=== PATIENT | female | born 1985 | race Caucasian/White ===

== ENCOUNTER 2019-12-03 07:00 | Outpatient (CLI) | payer OTHER ==
[2019-12-03 15:55] LABS: MUDS CUTOFF CONCENTRATIONS CUTOFF CONC BELOW:
[2019-12-03 16:04] LABS: BILIRUBIN,URINE NEGATIVE (NEGATIVE); GLUCOSE, URINE (UA) NEGATIVE (NEGATIVE); KETONES,URINE (UA) NEGATIVE (NEGATIVE); LEUKOCYTE ESTERASE, URINE SMALL (NEGATIVE); NITRITE,URINE NEGATIVE (NEGATIVE); OCCULT BLOOD,URINE NEGATIVE (NEGATIVE); PH,URINE 7.5 PH (5.0-7.5); PROTEIN,URINE NEGATIVE (NEGATIVE); UROBILINOGEN,URINE 0.2 (NORMAL) E.U./dL (NORMAL)
[2019-12-03 16:17] LABS: BACTERIA,URINE Few /HPF (None Seen); CLARITY,URINE CLEAR (CLEAR); RBC,URINE None Seen /HPF (0-5); SQUAMOUS EPITHELIAL CELL,UR MOD Squamous (<= Few)
[2019-12-03 16:24] LABS: AMPHETAMINE SCREEN,URINE NEGATIVE (NEGATIVE); BENZODIAZEPINES SCREEN, URINE NEGATIVE (NEGATIVE); COCAINE SCREEN URINE NEGATIVE (NEGATIVE); METHADONE SCREEN, URINE NEGATIVE (NEGATIVE); METHAMPHETAMINES SCREEN, URINE NEGATIVE (NEGATIVE); OPIATE SCREEN, URINE NEGATIVE (NEGATIVE); OXYCODONE SCREEN, URINE NEGATIVE (NEGATIVE); PROPOXYPHENE SCREEN, URINE NEGATIVE (NEGATIVE); TRICYCLIC ANTIDEPRESSANT,URINE NEGATIVE (NEGATIVE)
== END 2020-02-02 23:59 | disposition home or self-care (01) ==
LOC: LAB.R 07:00
PROVIDERS: ATTEND Nurse Practitioner Obstetrics & Gynecology
DX: Z34.90 Encounter for supervision of normal pregnancy, unspecified, unspecified trimester (principal)
CPT/HCPCS: 80306; 81001; 87086

== ENCOUNTER 2019-12-17 15:18 | Outpatient (CLI) | payer OTHER ==
--- NOTE | 2019-12-17 17:15 | Ultrasound Report ---
PROCEDURE: OB First Trimester INDICATIONS: SUPERVISION OF NORMALL OUTSIDE/PRIOR DATING DATA: Last menstrual period (LMP): 10/28/2019. LMP-based estimated date of delivery (ISAMAR): 08/03/2020. First dating scan (date and location): 12/17/2019. Estimated date of delivery (ISAMAR) from first dating scan: 08/01/2020. TECHNIQUE: Real-time scanning was performed of the fetus and maternal pelvic organs, with image documentation. COMPARISON: None FINDINGS: There is a single living intrauterine gestation with heart rate 152 bpm. Embryo: [place]-rump length 1.2 cm correlates with a gestational age estimate of 7 weeks 3 days, +/- 5 days. Measurement variability in dating: +/- 4 weeks by LMP, +/- 7 days by mean sac diameter (use before 6 weeks gestation if crown-rump length not able to be measured), +/- 5 days by crown-rump length (6-12 weeks gestation). Maternal organs: Ovaries normal considering gestational status. Limited images through the kidneys demonstrate no hydronephrosis. IMPRESSION: 7 week 3 day gestational age, with delivery date projected to be centered on 08/01/2020 from this stud y. Follow-up anatomic survey at 20 weeks gestation is recommended. Reviewed by: Paul Velasquez MD on 12/17/2019 5:14 PM PST Approved by: Paul Velasquez MD on 12/17/2019 5:14 PM PST Station ID: [id number]
== END 2019-12-17 15:19 | disposition home or self-care (01) ==
LOC: DI 15:18
PROVIDERS: ATTEND Nurse Practitioner Obstetrics & Gynecology
DX: Z34.91 Encounter for supervision of normal pregnancy, unspecified, first trimester (principal)
CPT/HCPCS: 76801

== ENCOUNTER 2020-01-07 10:53 | Outpatient (CLI) | payer OTHER ==
[2020-01-07 11:51] LABS: BASOPHILS # (AUTO) 0.1 10^3/uL (0.0-0.1); BASOPHILS % (AUTO) 0.6 %; EOSINOPHILS # (AUTO) 0.4 10^3/uL (0.0-0.7); EOSINOPHILS % (AUTO) 3.4 %; HGB - HEMOGLOBIN 12.6 g/dL (12.0-16.0); LYMPHOCYTES # (AUTO) 1.5 10^3/uL (1.5-3.5); LYMPHOCYTES % (AUTO) 14.2 %; MEAN CORPUSCULAR HEMOGLOBIN 30.8 pg (27.0-31.0); MEAN CORPUSCULAR HGB CONC 33.7 g/dL (32.0-36.0); MEAN CORPUSCULAR VOLUME 91.4 fL (81.0-99.0); MEAN PLATELET VOLUME 10.2 fL (7.9-10.8); MONOCYTES # (AUTO) 0.7 10^3/uL (0.0-1.0); MONOCYTES % (AUTO) 6.7 %; NEUTROPHILS # (AUTO) 7.7 10^3/uL (1.5-6.6); NEUTROPHILS % (AUTO) 74.7 %; PLT - PLATELET COUNT 207 10^3/uL (130-450); RED BLOOD COUNT 4.09 10^6/uL (4.20-5.40); RED CELL DISTRIBUTION WIDTH 12.2 % (12.0-15.0); WHITE BLOOD COUNT 10.3 x10^3/uL (4.8-10.8)
[2020-01-08 11:52] LABS: HIV AG/AB 4TH GEN NON-REACTIVE (NON-REACTIVE)
[2020-01-08 12:38] LABS: HEPATITIS B SURFACE ANTIGEN NON-REACTIVE (NON-REACTIVE); HEPATITIS C ANTIBODY NON-REACTIVE (NON-REACTIVE)
== END 2020-01-07 10:54 | disposition home or self-care (01) ==
LOC: LAB 10:53
PROVIDERS: ATTEND Advanced Practice Midwife
DX: Z34.90 Encounter for supervision of normal pregnancy, unspecified, unspecified trimester (principal); Z36.89 Encounter for other specified antenatal screening
CPT/HCPCS: 36415; 81599; 85025; 86592; 86762; 86787; 86803; 86850; 86900; 86901; 87340; 87389

== ENCOUNTER 2020-02-13 10:13 | Outpatient (CLI) | payer OTHER | END 2020-02-13 10:14 | disposition home or self-care (01) | LOC: LAB 10:13 | PROVIDERS: ATTEND Advanced Practice Midwife | DX: O09.519 Supervision of elderly primigravida, unspecified trimester (principal) | CPT/HCPCS: 36415; 82105 ==

== ENCOUNTER 2020-03-08 08:16 | Outpatient (CLI) | payer OTHER | END 2020-03-08 08:17 | disposition home or self-care (01) | LOC: LAB 08:16 | PROVIDERS: ATTEND Nurse Practitioner Obstetrics & Gynecology | DX: Z36.0 Encounter for antenatal screening for chromosomal anomalies (principal) | CPT/HCPCS: 81599; 82105 ==

== ENCOUNTER 2020-03-17 15:18 | Outpatient (CLI) | payer BC, OTHER ==
--- NOTE | 2020-03-22 16:56 | Ultrasound Report ---
PROCEDURE: OB Detailed Eval INDICATIONS: ENC FOR SCREENING OUTSIDE/PRIOR DATING DATA: Last menstrual period (LMP): 10/28/2019. LMP-based estimated date of delivery (ISAMAR): 08/03/2020. First dating scan (date and location): 12/17/2019. Estimated date of delivery (ISAMAR) from first dating scan: 08/01/2020. Due date by provider is 08/03/2020 . TECHNIQUE: Real-time scanning was performed of the fetus, with image documentation and biometric measurements. COMPARISON: OB ultrasound 12/17/2019 FINDINGS: General: A single living intrauterine gestation is present. Presentation: Third Placenta: Placental position is posterior, without previa. Amniotic fluid index: 16.3 cm, within normal limits for gestational age. Largest pocket 4.5 cm. heart rate: 158 beats per minute. Maternal cervical canal: 3.6 cm long; normal length is 2.5 cm or more. biometrics: Biparietal diameter: 5.0 cm 21 weeks 1 day Head circumference: 18.7 cm 21 weeks 0 days Abdominal circumference: 15.9 cm 21 weeks 0 days Femur length: 3.4 cm 20 weeks 5 days Estimated gestational age from initial scan: 20 weeks 1 day Composite gestational age from present scan: 20 weeks 6 days Estimated weight and percentile: 385 g, 85th percentile Measurement variability in biometric dating: +/- 10 days from 12-20 weeks gestation, +/- 2 weeks from 20-30 weeks gestation, +/- 3 weeks at 30 weeks gestation or later. Anatomic survey: Neuro: Ventricles are normal at less than 10 mm. Cisterna magna is normal at 3-11 mm. Cerebellum i s normal in size and morphology. Nuchal skin fold: Normal at less than 6 mm between 14 and 20 weeks gestational age. Face: Nose and lips, facial profile are normal. Spine: No evidence for spina bifida. Heart: 4-chambered heart is present. Right ventricular outflow tract is suboptimally evaluated. Diaphragm: Diaphragm is intact. Stomach: Left-sided stomach is present. Kidneys: No hydronephrosis. Normal is less than 5 mm in 2nd trimester, less than 7 mm in 3rd trimester. Cord: 3 vessel cord has marginal placental cord insertion approximately 1.5 cm from the superior edg e. Bladder: Normal in size. Extremities: All 4 extremities are visualized. IMPRESSION: Single live intrauterine as above. Marginal placental cord insertion. Suboptimal visualization of the right ventricular outflow track. Recommend interval follow-up for add itional evaluation. Reviewed by: Swati Diaz MD on 03/22/2020 4:54 PM PST Approved by: Swati Diaz MD on 03/22/2020 4:54 PM PST Station ID: [id number]
== END 2020-03-17 15:19 | disposition home or self-care (01) ==
LOC: DI 15:18
PROVIDERS: ATTEND Advanced Practice Midwife
DX: Z34.92 Encounter for supervision of normal pregnancy, unspecified, second trimester (principal); Z36.0 Encounter for antenatal screening for chromosomal anomalies

== ENCOUNTER 2020-04-14 14:45 | Outpatient (CLI) | payer BC ==
--- NOTE | 2020-04-14 17:39 | Ultrasound Report ---
PROCEDURE: OB F/U or Repeat INDICATIONS: SUPERVISION OF NORMAL OUTSIDE/PRIOR DATING DATA: Last menstrual period (LMP): 10/28/2019. LMP-based estimated date of delivery (ISAMAR): 08/03/2020. First dating scan (date and location): 12/17/2019. Estimated date of delivery (ISAMAR) from first dating scan: 08/01/2020. TECHNIQUE: Real-time scanning was performed of the fetus, with image documentation. Endovaginal scanning: Not performed. COMPARISON: 03/17/2020. FINDINGS: General: A single living intrauterine gestation is present. Presentation: Cephalic. Placenta: Placental position is posterior, without previa. Cord insertion is marginal approximately 1.4 cm from the placental edge. Amniotic fluid index: 18.4 cm cm, 80th percentile for gestational age. Largest pocket 5 cm. heart rate: 141 beats per minute. Maternal cervical canal: 4.4 cm long; normal length is 2.5 cm or more. No funneling. Estimated gestational age from initial scan: 24 weeks 1 day. Composite gestational age from present scan: Not applicable. Measurement variability in biometric dating: +/- 10 days from 12-20 weeks gestation, +/- 2 weeks from 20-30 weeks gestation, +/- 3 weeks at 30 weeks gestation or more. Other: RVOT, LVOT, four-chamber heart views are normal. IMPRESSION: 1. [place] living intrauterine at 24 weeks 1 day based on prior ultrasound. 2. Marginal cord insertion on the placenta similar the prior exam. WILNER 18.4 cm. 3. The heart is now seen and normal in appearance. Reviewed by: Agapito Denson MD on 04/14/2020 5:38 PM PST Approved by: Agapito Denson MD on 04/14/2020 5:38 PM PST Station ID: [id number]
== END 2020-04-14 14:46 | disposition home or self-care (01) ==
LOC: DI 14:45
PROVIDERS: ATTEND Advanced Practice Midwife
DX: Z34.92 Encounter for supervision of normal pregnancy, unspecified, second trimester (principal)

== ENCOUNTER 2020-05-05 08:49 | Outpatient (CLI) | payer BC ==
[2020-05-05 10:06] LABS: HCT - HEMATOCRIT 31.9 % (37.0-47.0); MEAN CORPUSCULAR HEMOGLOBIN 32.4 pg (27.0-31.0); MEAN CORPUSCULAR HGB CONC 34.5 g/dL (32.0-36.0); MEAN CORPUSCULAR VOLUME 94.1 fL (81.0-99.0); MEAN PLATELET VOLUME 9.6 fL (7.9-10.8); RED BLOOD COUNT 3.39 10^6/uL (4.20-5.40); RED CELL DISTRIBUTION WIDTH 13.2 % (12.0-15.0); WHITE BLOOD COUNT 10.1 x10^3/uL (4.8-10.8)
== END 2020-05-05 08:50 | disposition home or self-care (01) ==
LOC: LAB 08:49
PROVIDERS: ATTEND Nurse Practitioner Obstetrics & Gynecology
DX: Z36.0 Encounter for antenatal screening for chromosomal anomalies (principal)
CPT/HCPCS: 36415; 82950; 85027

== ENCOUNTER 2020-06-16 09:14 | Outpatient (CLI) | payer OTHER ==
[2020-06-16 09:33] LABS: HCT - HEMATOCRIT 33.7 % (37.0-47.0); HGB - HEMOGLOBIN 11.7 g/dL (12.0-16.0); MEAN CORPUSCULAR HGB CONC 34.7 g/dL (32.0-36.0); MEAN CORPUSCULAR VOLUME 92.1 fL (81.0-99.0); MEAN PLATELET VOLUME 10.3 fL (7.9-10.8); RED BLOOD COUNT 3.66 10^6/uL (4.20-5.40); RED CELL DISTRIBUTION WIDTH 13.4 % (12.0-15.0); WHITE BLOOD COUNT 10.9 x10^3/uL (4.8-10.8)
== END 2020-06-16 09:15 | disposition home or self-care (01) ==
LOC: LAB 09:14
PROVIDERS: ATTEND Nurse Practitioner Obstetrics & Gynecology
DX: O99.019 Anemia complicating pregnancy, unspecified trimester (principal)
CPT/HCPCS: 36415; 85027

== ENCOUNTER 2020-06-29 11:10 | Outpatient (CLI) | payer OTHER ==
[2020-06-29 12:02] VITALS: BP 128/87
--- NOTE | 2020-06-29 12:46 | PROVIDER PROGRESS NOTE ---
- HPI Chief Complaint: Other Current : Current EDU 08/03/20 Gestation 35 Weeks and 0 Days 1 Para 0 Vital Signs Temperature 31.7 C L 06/29/20 11:20 Heart Rate 87 06/29/20 11:20 Respiratory Rate 18 06/29/20 11:20 Blood Pressure 147/82 H 06/29/20 11:20 O2 Saturation 97 06/29/20 11:20 Temperature 31.7 C L 06/29/20 11:20 Heart Rate 89 06/29/20 11:43 Respiratory Rate 18 06/29/20 11:43 Blood Pressure 128/87 H 06/29/20 11:43 O2 Saturation 97 06/29/20 11:20 - Procedures OB Procedure Performed: NST Diagnosis/Indication for NST: Other NST Procedure: NST Procedure Start Date 06/29/20 Start Time 11:17 Stop Time 11:44 Vibroacoustic Stimulation Used No Patient States Movement Yes - Plan Plan: Pt directed to present to [facility] from her routine office visit secondary to tachycardia noted on doppler at the bedside in the office. NST performed 06/29/2020 NST read 06/29/2020 NST reactive. FHR baseline 145, moderate variability, + accels, no decels No contractions appreciated via tocometry Pt released home with precautions. She verbalized understanding and agrees to above plan. She denies further questions or concerns at this time. FINAL ASSESSMENT: Tachycardia - resolved
== END 2020-06-29 11:50 | disposition home or self-care (01) ==
LOC: WFO 11:10 → FBP 11:11 → WFO 11:50
PROVIDERS: ATTEND Nurse Practitioner Obstetrics & Gynecology
DX: O36.8330 Maternal care for abnormalities of the fetal heart rate or rhythm, third trimester, not applicable or unspecified (principal); Z3A.35 35 weeks gestation of pregnancy
CPT/HCPCS: 59025; 99213

== ENCOUNTER 2020-07-09 08:00 | Outpatient (CLI) | payer OTHER | END 2020-07-09 23:59 | disposition home or self-care (01) | LOC: LAB.WC 08:00 | PROVIDERS: ATTEND Nurse Practitioner Obstetrics & Gynecology | DX: Z36.85 Encounter for antenatal screening for Streptococcus B (principal) | CPT/HCPCS: 87797 ==

== ENCOUNTER 2020-08-11 04:50 | Inpatient (IN) | payer OTHER ==
[2020-08-11] MEDS ORDERED: OXYTOCIN 10 UNIT/ML VIAL ONE (05:13)
[2020-08-11] MEDS ORDERED: OXYTOCIN/SODIUM CHLORIDE 500 ML IV ONE (05:13)
[2020-08-11] MEDS ORDERED: miSOPROStoL 200 MCG TABLET ONE (05:13)
[2020-08-11] MEDS ORDERED: TRANEXAMIC ACID IN NACL 1,000 MG/100 ML BAG IV PRN (05:14)
[2020-08-11] MEDS ORDERED: OXYTOCIN 10 UNIT/ML VIAL IM PRN (05:14)
[2020-08-11] MEDS ORDERED: SODIUM CHLORIDE FLUSH 0.9% 10 ML SYRINGE IVP PRN (05:14)
[2020-08-11] MEDS ORDERED: miSOPROStoL 200 MCG TABLET BC PRN (05:14)
[2020-08-11] MEDS ORDERED: LIDOCAINE-MPF 1% 30 ML VIAL ID PRN (05:14)
[2020-08-11] MEDS ORDERED: CARBOPROST TROMETHAMINE 250 MCG/ML AMP IM PRN (05:14)
[2020-08-11] MEDS ORDERED: METHYLERGONOVINE 0.2 MG/ML VIAL IM PRN (05:14)
[2020-08-11] MEDS ORDERED: OXYTOCIN/SODIUM CHLORIDE 500 ML IV PRN (05:14)
[2020-08-11] MEDS ORDERED: METHYLERGONOVINE 0.2 MG/ML VIAL ONE (05:14)
[2020-08-11] MEDS ORDERED: CARBOPROST TROMETHAMINE 250 MCG/ML AMP IM ONE (05:14)
[2020-08-11 05:24] LABS: RUPTURE OF MEMBRANES PLUS POSITIVE (NEGATIVE)
[2020-08-11 05:35] LABS: BASOPHILS # (AUTO) 0.1 10^3/uL (0.0-0.1); BASOPHILS % (AUTO) 0.4 %; EOSINOPHILS # (AUTO) 0.1 10^3/uL (0.0-0.7); EOSINOPHILS % (AUTO) 0.5 %; HCT - HEMATOCRIT 37.4 % (37.0-47.0); HGB - HEMOGLOBIN 13.1 g/dL (12.0-16.0); LYMPHOCYTES # (AUTO) 1.5 10^3/uL (1.5-3.5); LYMPHOCYTES % (AUTO) 11.9 %; MEAN CORPUSCULAR VOLUME 91.2 fL (81.0-99.0); MEAN PLATELET VOLUME 10.6 fL (7.9-10.8); MONOCYTES # (AUTO) 0.7 10^3/uL (0.0-1.0); MONOCYTES % (AUTO) 5.7 %; NEUTROPHILS # (AUTO) 10.3 10^3/uL (1.5-6.6); NEUTROPHILS % (AUTO) 80.7 %; PLT - PLATELET COUNT 206 10^3/uL (130-450); RED CELL DISTRIBUTION WIDTH 13.2 % (12.0-15.0); WHITE BLOOD COUNT 12.8 x10^3/uL (4.8-10.8)
[2020-08-11] MEDS ORDERED: LACTATED RINGERS 1,000 ML IV SCH (06:00)
[2020-08-11] MEDS ORDERED: HYDROCORTISONE 1% CREAM 28 GM TUBE PR PRN (08:32)
[2020-08-11] MEDS ORDERED: WITCH HAZEL/GLYCERIN 1 PAD TOP PRN (08:32)
--- NOTE | 2020-08-11 08:35 | HISTORY & PHYSICAL EXAMINATION ---
Admit History - Visit Reason Visit Reason: Contractions - : 1 Parity: 0 Premature: 0 Ectopic: 0 : 0 Risk/History: positive: None Complications This : positive: None Smoking Status: Never smoker - Mother's Labs Mother's Blood Type: positive: O Mother's RH: positive: Positive GBS: positive: Group B Step Negative Rubella Status: positive: Immune - Other Maternal History Other Maternal History: -35yo at 41.1wks gestation who presents to Labor and Delivery with reports of contractions since 229, which woke her up -Reports movement -Denies ctx/VB/LOF - care with [facility] which has been adequate - Complications *Mild anemia *Elderly primigravida -Dating Criteria * Initial US: at 7.1wks c/w LMP for ISAMAR 08/04/2019: -OB Hx *G1:current -Medications * vitamin-daily *Fe supplementation- 325mg daily -Allergies *Amoxicillin (critical) -Medical History *Anxiety -Surgical History *[place] Teeth extraction -Family History *MGM- arthritis *Father- HTN Mother- [place] <65yo -Social History *Non contributory - Labs, Immunizations, and Findings Initial US: at 7.1wks c/w LMP for ISAMAR 08/04/2019: O pos/Rubella immune VZV immune Gentic testing: [place]- neg; AFP - neg FAS: Posterior placenta. WILNER wnl. EFW 85%. 3vc. Suboptimal views of outflow tracts, f/u FAS 04/14/2020 -WNL Glucola 100 Flu: 12/03/2019 TDAP 06/02/2020 GBS at 36.2 weeks -Neg HSV: denies self and partner Breast pump Rx 05/19/2020 MOD: . Anxiety about noted- books recommended; Desires "wait and see" approach to pain management; FOB: Cheo. It's a BOY! Jorge pp contraception: condoms PAP: 01/07/2020- nilm, hpv neg, GC/CT neg -SVE per RN : complete/plus one -Vertex by digital exam -EFW by hillary's approx. 8.5# - Physical Exam: Normocephalic, atraumatic Heart RRR w/o murmur Lungs clear and equal bilaterally Abdomen gravid, soft, nontender Edema- none Psych- wnl -FHTs per flowsheet -Assessment *Restate STATUS *Smith Score *- requires cervical ripening * Heart Tones- Category I -Plan *Admit to OBS(until active labor, SROM, AROM, epidural, or pitocin) *Cervical ripening with Misoprostol *Monitoring- Continuous *Comfort measures available- position changes, whirlpool tub, fentanyl, and epidural per maternal preference *Diet/Activity- per maternal preference *Anticipate Meds/Allgy - Allergies Allergies/Adverse Reactions: Allergies Allergy/AdvReac Type Severity Reaction Status Date / Time amoxicillin Allergy Anaphylaxis Verified 08/11/20 05:43 Physical - Abdominal Exam Contraction Frequency (min/apart): 1-3min Contraction Intensity: positive: Strong Uterine Resting Tone: positive: Soft - Monitoring Heart Rate Baseline: 140 Strip Review: positive: Category I - Presentation Presentation: positive: Vertex - Vaginal Exam Dilation (in cm): 10 Plan for Labor - Plan For Labor I expect patient to be DC'd or transferred within 96 hours.: Yes
--- NOTE | 2020-08-11 08:35 | DELIVERY NOTE ---
<Alejandra Granger - Last Filed: 08/11/20 08:37> Delivery Note - Delivery Comments (Free Text/Narrative) Delivery Comments (Free Text/Narrative): ADDENDUM: I was called in for consultation for complication perineal laceration repair by PENG Hawkins. Patient was examined and found to have partial third degree laceration. She was administered 25 cc of 1% lidocaine in divided doses through the course of the repair. A rectal exam was performed and the anal sphincter was noted to be lacerated to about 2/3 depth. Interrupted sutures using 2-0 Vicryl were used to reinforce the sphincter in the posterior, inferior, superior, and anterior positions. Rectal exam was performed and the bulk of the sphincter muscle was adequately developed and no sutures were palpated in the rectum. Interrupted suture again using 2-0 Vicryl was used to reapproximate the musculature overlying the rectovaginal septum. Rectal exam was again performed, which showed absence of suture in the rectal vault and indicated satisfactory bulk over the rectovaginal septum. A crown stitch using 3-0 Vicryl was used to repair the floor of the vaginal vault and the perineum to the edge of the anal verge, performed in the usual sterile fashion in layers. Final rectal exam was performed and again showed absence of suture in the rectal vault. Good hemostasis was noted. Please refer to the delivery note above submitted by PENG Hawkins, for details regarding preceding delivery and EBL. Mine Granger MD 08/11/20 08:30 <vEon Wesley - Last Filed: 08/11/20 14:20> Delivery Note - Labor Labor: positive: Spontaneous - Delivery Method Infant Delivery Method: positive: Spontaneous vaginal delivery - Presentation Presentation: positive: Vertex, SHERLY - right occiput anterior (right hand compound) - Nuchal Cord Nuchal Cord: positive: None - Amniotic Fluid Description Amniotic Fluid Description: positive: Clear - Episiotomy Type Episiotomy Type: positive: None - Laceration Laceration: positive: 3rd degree - : positive: Placed in direct skin contact with mother, Stimulated, Blank et used sex: positive: Male - Cord Cord: positive: 3 vessels - Placenta Placenta: positive: Intact, Spontaneous - Estimated Blood Loss Estimated Blood Loss (in cc): 300 - Delivery Comments (Free Text/Narrative) Delivery Comments (Free Text/Narrative): Note: Labor: This 35 year old, , @41.1wks gestation by 7.1 week Ultrasound, confirmed by LMP, presented @ 0505 in active labor. Cervix was complete, plus one, and vertex. FHR pattern demonstrated a moderate baseline in a Category I pattern. Normal labor course. SROM occurred @ 0455 and amount and color of fluid were noted to be moderate and clear. CNM to bedside by 0520 and pushing began. Forebag ruptured for clear at 0558. : Normal of a 4055gm male infant, named Jorge, on 08/11/20 @ 0701. Nuchal not present, however baby did present in SHERLY with a right hand compound presentation. The was placed on maternal abdomen, stimulated, dried and placed skin to skin. Apgars 8 at one minute and 9 at five minutes. The umbilical cord was allowed to stop pulsating at which time it was doubly clamped by CNM and cut by Di. Pitocin administered via IV for hemostasis. Fundal massage and gentle cord traction applied for active third stage management. Cord blood was obtained. Placenta delivered spontaneously and intact at 0713. Three vessel cord. EBL 300mL. Fourth Stage: Uterine fundus firm and without excessive bleeding. The perineum, vagina, and cervix were inspected and found to be have sustained a partial third degree laceration. MD backup called to bedside for assistance with repair. Please see note. Following repair: Tissues well approximated. initiated. Family bonding well. Both mother and baby are in stable condition.
[2020-08-11] MEDS ORDERED: SODIUM CHLORIDE FLUSH 0.9% 10 ML SYRINGE IVP SCH (09:00)
[2020-08-11] MEDS: DOCUSATE SODIUM 100 MG CAPSULE PO SCH ×2 (09:13→20:49)
[2020-08-11] MEDS: ACETAMINOPHEN 500 MG TABLET PO SCH ×2 (09:13→17:26)
[2020-08-11] MEDS: IBUPROFEN 600 MG TABLET PO SCH ×3 (09:13→22:17)
[2020-08-12] MEDS: ACETAMINOPHEN 500 MG TABLET PO SCH ×2 (01:30→09:36)
[2020-08-12] MEDS: IBUPROFEN 600 MG TABLET PO SCH ×2 (04:18→10:28)
--- NOTE | 2020-08-12 07:51 | PROVIDER PROGRESS NOTE ---
Subjective - Prog Note Date Prog Note Date: 08/12/20 Prog Note Time: 07:00 - Subjective Pt reports feeling: Improved Subjective: S: Di is resting in bed. Baby is in bassinet and FOB is supportive at bedside. She reports has not been too much of a struggle. She feels her pain is well managed with oral medication and has not stooled yet, but is aware to take her time. O Lochia rubra fundus firm A: 35yo s/p SVE on 08/11/2020 Normal recovery P: Continue routine care Evaluate for discharge home today Objective - Vital Signs/Intake & Output Vital Signs: Vital Signs x48h Temp Pulse Resp BP Pulse Ox 08/12/20 04:14 36.7 C 75 18 131/76 H 97 Intake & Output: Intake & Output 08/09/20 08/10/20 08/11/20 08/12/20 23:59 23:59 23:59 23:59 Intake Total 1229.75 500 Output Total 650 Balance 579.75 500 - Lab Results Fish Bones: 08/11/20 05:20
[2020-08-12 09:10] VITALS: BP 120/69
[2020-08-12] MEDS: DOCUSATE SODIUM 100 MG CAPSULE PO SCH (09:36)
--- NOTE | 2020-08-12 10:45 | DISCHARGE SUMMARY ---
Discharge Summary Admit Date: 08/11/20 Discharge Date: 08/12/20 Condition at Discharge: Good Discharge Disposition: 01 Home, Self Care - HPI History of Present Illness: Admit Date 08/11/2020 Discharge Date 08/12/2020 Diagnosis on Admission: 1. A 35yo at 31.1 week intrauterine 2. Anemia of - mild 3. Elderly primagravida Diagnosis on Discharge 1. A 35yo s/p spontaneous vaginal delivery on 08/11/2020 2. Normal recovery Brief History: She is a patient at [facility] who presented to labor and delivery on 08/11/2020 @41.1wks gestation by 7.1 week Ultrasound, confirmed by LMP, presented @ 0505 in active labor. Cervix was complete, plus one, and vertex. FHR pattern demonstrated a moderate baseline in a Category I pattern. Normal labor course. SROM occurred @ 0455 and amount and color of fluid were noted to be moderate and clear. CNM to bedside by 0520 and pushing began. Forebag ruptured for clear at 0558. Normal of a 4055gm male , named Jorge, on 08/11/20 @ 0701. Apgars were 8 and 9- and 1 and 5 minutes respectively. EBL 300mL. She sustained partial third degree perineal laceration which was repaired by . She has been doing well in her course. She is ambulating and tolerating a regular diet. She is urinating without difficulty and her lochia is normal. Her pain is well controlled with oral medications. She will be discha rged home today on day #1 without need for. She intends to follow up with Midwifery at [facility] in 1, and 6 weeks for routine visit. She has been given precautions to call if she has any worsening fevers, chills, abdominal pain, increased bleeding or foul smelling vaginal lochia. - ALLERGIES Allergies/Adverse Reactions: Allergies Allergy/AdvReac Type Severity Reaction Status Date / Time amoxicillin Allergy Anaphylaxis Verified 08/11/20 05:43 - LABS Result Diagrams: 08/11/20 05:20
--- NOTE | 2020-08-12 10:46 | Discharge Plan ---
Discharge Plan Problem Reviewed?: Yes Disposition: Home, Self Care Condition: Good Diet: Regular No Smoking: If you smoke, Please STOP! Call for help. Follow-up with: Evon Wesley ARNP [Provider Admit Priv/Credential] -
== END 2020-08-12 11:50 | disposition home or self-care (01) | DRG 768 ==
LOC: WFO 04:50 → FBP 04:51 → WFO 05:04 → FBP 05:14
PROVIDERS: ADMIT Advanced Practice Midwife; ATTEND Advanced Practice Midwife
PROC: 0DQR0ZZ Repair Anal Sphincter, Open Approach (ICD-10-PCS; principal; 2020-08-11)
PROC: 10E0XZZ Delivery of Products of Conception, External Approach (ICD-10-PCS; 2020-08-11)
DX: O70.20 Third degree perineal laceration during delivery, unspecified (principal); Z37.0 Single live birth; O32.6XX0 Maternal care for compound presentation, not applicable or unspecified; O99.02 Anemia complicating childbirth; Z3A.41 41 weeks gestation of pregnancy
CPT/HCPCS: 36415; 84112; 85025; 86850; 86900; 86901; 99214; A9270; J2210

== ENCOUNTER 2022-03-15 11:39 | Outpatient (CLI) | payer OTHER ==
[2022-03-15 14:15] LABS: BASOPHILS # (AUTO) 0.1 10^3/uL (0.0-0.1); BASOPHILS % (AUTO) 0.5 %; EOSINOPHILS # (AUTO) 0.4 10^3/uL (0.0-0.7); EOSINOPHILS % (AUTO) 3.6 %; HGB - HEMOGLOBIN 12.3 g/dL (12.0-16.0); LYMPHOCYTES # (AUTO) 1.7 10^3/uL (1.5-3.5); LYMPHOCYTES % (AUTO) 16.8 %; MEAN CORPUSCULAR HEMOGLOBIN 30.1 pg (27.0-31.0); MEAN CORPUSCULAR HGB CONC 33.2 g/dL (32.0-36.0); MEAN CORPUSCULAR VOLUME 90.7 fL (81.0-99.0); MONOCYTES # (AUTO) 0.6 10^3/uL (0.0-1.0); MONOCYTES % (AUTO) 5.7 %; NEUTROPHILS # (AUTO) 7.4 10^3/uL (1.5-6.6); NEUTROPHILS % (AUTO) 73.2 %; PLT - PLATELET COUNT 203 10^3/uL (130-450); RED BLOOD COUNT 4.08 10^6/uL (4.20-5.40); RED CELL DISTRIBUTION WIDTH 12.9 % (12.0-15.0); WHITE BLOOD COUNT 10.1 x10^3/uL (4.8-10.8)
[2022-03-15 21:12] LABS: ESTIMATED AVERAGE GLUCOSE 97 mg/dL (70-100)
[2022-03-16 04:09] LABS: HBsAG SCREEN Negative (Negative)
[2022-03-16 07:10] LABS: RPR Non Reactive (Non Reactive)
[2022-03-16 08:10] LABS: VARICELLA-ZOSTER AB IGG 748 index (Immune >165)
[2022-03-16 09:10] LABS: HCV AB <0.1 s/co ratio (0.0-0.9); HIV SCREEN 4TH GENERATION Non Reactive (Non Reactive)
== END 2022-03-15 11:40 | disposition home or self-care (01) ==
LOC: LAB.S 11:39
PROVIDERS: ATTEND Nurse Practitioner Obstetrics & Gynecology
DX: O99.210 Obesity complicating pregnancy, unspecified trimester (principal); Z13.79 Encounter for other screening for genetic and chromosomal anomalies
CPT/HCPCS: 36415; 83036; 85025; 86592; 86762; 86787; 86803; 86850; 86900; 86901; 87340; 87389

== ENCOUNTER 2022-05-22 15:17 | Outpatient (CLI) | payer OTHER ==
--- NOTE | 2022-05-22 17:45 | Ultrasound Report ---
PROCEDURE: OB Detailed Eval INDICATIONS: SUPERVISION OF OUTSIDE/PRIOR DATING DATA: Last menstrual period (LMP): 12/31/2021. LMP-based estimated date of delivery (ISAMAR): 10/07/2022. First dating scan (date and location): To 723. Estimated date of delivery (ISAMAR) from first dating scan: 10/05/2022. The below data below was generated using the ultrasound ISAMAR of 10/05/2022 TECHNIQUE: Real-time scanning was performed of the fetus, with image documentation and biometric measurements. COMPARISON: None FINDINGS: General: A single living intrauterine gestation is present. Presentation: Vertex Placenta: Placental position is posterior, without previa. Amniotic fluid index: 17 cm, within normal limits for gestational age. heart rate: 132 beats per minute. Maternal cervical canal: 4.2 cm long; normal length is 2.5 cm or more. biometrics: Biparietal diameter: 4.9 cm 20 weeks 5 days Head circumference: 18.5 cm 20 weeks 6 days Abdominal circumference: 16.1 cm 21 weeks 1 day Femur length: 3.5 cm 21 weeks 1 day Estimated gestational age from initial scan: 20 weeks 4 days Composite gestational age from present scan: 20 weeks 4 days Estimated weight and percentile: 402 g, 76th percentile Measurement variability in biometric dating: +/- 10 days from 12-20 weeks gestation, +/- 2 weeks from 20-30 weeks gestation, +/- 3 weeks at 30 weeks gestation or later. Anatomic survey: Neuro: Ventricles are normal at less than 10 mm. Cisterna magna is normal at 3-11 mm. Cerebellum i s normal in size and morphology. Nuchal skin fold: Normal at less than 6 mm between 14 and 20 weeks gestational age. Face: Nose and lips, facial profile are not well seen. Spine: No evidence for spina bifida. Heart: 4-chambered heart and ventricular outflow tracts are suboptimally evaluated. Diaphragm: Diaphragm is intact. Stomach: Left-sided stomach is present. Kidneys: No hydronephrosis. Normal is less than 5 mm in 2nd trimester, less than 7 mm in 3rd trimester. Cord: 3 vessel cord has orthotopic insertion. Bladder: Normal in size. Extremities: All 4 extremities are visualized. IMPRESSION: Single live intrauterine with ultrasound gestational age of 20 weeks 4 days. 4 chambered heart/outflow tracts and profile are not well seen. Recommend follow-up imaging for furth er evaluation. Reviewed by: Swati Diaz MD on 05/22/2022 5:43 PM PDT Approved by: Swait Diaz MD on 05/22/2022 5:43 PM PDT Station ID: [id number]
== END 2022-05-22 15:18 | disposition home or self-care (01) ==
LOC: DI 15:17
PROVIDERS: ATTEND Nurse Practitioner Obstetrics & Gynecology
DX: Z34.02 Encounter for supervision of normal first pregnancy, second trimester (principal); Z36.89 Encounter for other specified antenatal screening

== ENCOUNTER 2022-06-08 16:29 | Outpatient (CLI) | payer OTHER ==
--- NOTE | 2022-06-09 14:41 | Ultrasound Report ---
PROCEDURE: OB F/U or Repeat INDICATIONS: SUPERVISION OF NORMAL , FAS F/U OUTSIDE/PRIOR DATING DATA: Last menstrual period (LMP): 12/31/2021. LMP-based estimated date of delivery (ISAMAR): 10/07/2022. First dating scan (date and location): To 723. Estimated date of delivery (ISAMAR) from first dating scan: 10/05/2022. The below data below was generated using the ultrasound ISAMAR of 10/05/2022. TECHNIQUE: Real-time scanning was performed of the fetus, with image documentation and biometric measurements. COMPARISON: OB ultrasound, 05/22/2022. FINDINGS: General: A single living intrauterine gestation is present. Presentation: Breech Placenta: Placental position is posterior, without previa. Amniotic fluid index: 13.3 cm; largest pocket measuring 3.9 cm. heart rate: 137 beats per minute. Maternal cervical canal: 4.5 cm long; normal length is 2.5 cm or more. Other: facial profile is visualized and appeara normal. Normal four-chamber heart and ventricul ar outflow tracts. IMPRESSION: 1. Single living intrauterine gestation redemonstrated. 2. Normal facial follow-up, four-chamber heart and ventricular outflow tracts. 3. Normal WILNER. Reviewed by: Sonia Rosario MD on 06/09/2022 2:39 PM PDT Approved by: Sonia Rosario MD on 06/09/2022 2:39 PM PDT Station ID: [id number]
== END 2022-06-08 16:30 | disposition home or self-care (01) ==
LOC: DI 16:29
PROVIDERS: ATTEND Nurse Practitioner Obstetrics & Gynecology
DX: Z34.00 Encounter for supervision of normal first pregnancy, unspecified trimester (principal); Z36.89 Encounter for other specified antenatal screening

== ENCOUNTER 2022-07-05 09:52 | Outpatient (CLI) | payer OTHER ==
[2022-07-05 14:32] LABS: HCT - HEMATOCRIT 33.4 % (37.0-47.0); HGB - HEMOGLOBIN 10.8 g/dL (12.0-16.0); MEAN CORPUSCULAR HEMOGLOBIN 30.9 pg (27.0-31.0); MEAN CORPUSCULAR HGB CONC 32.3 g/dL (32.0-36.0); MEAN CORPUSCULAR VOLUME 95.4 fL (81.0-99.0); MEAN PLATELET VOLUME 11.4 fL (7.9-10.8); RED BLOOD COUNT 3.5 10^6/uL (4.20-5.40); RED CELL DISTRIBUTION WIDTH 13.3 % (12.0-15.0); WHITE BLOOD COUNT 9.9 x10^3/uL (4.8-10.8)
== END 2022-07-05 09:53 | disposition home or self-care (01) ==
LOC: LAB.S 09:52
PROVIDERS: ATTEND Nurse Practitioner Obstetrics & Gynecology
DX: Z36.9 Encounter for antenatal screening, unspecified (principal)
CPT/HCPCS: 36415; 82950; 85025; 85027

== ENCOUNTER 2022-09-13 10:30 | Outpatient (CLI) | payer OTHER ==
[2022-09-13 15:03] LABS: BASOPHILS % (AUTO) 0.4 %; EOSINOPHILS # (AUTO) 0.2 10^3/uL (0.0-0.7); EOSINOPHILS % (AUTO) 1.9 %; HGB - HEMOGLOBIN 12.3 g/dL (12.0-16.0); LYMPHOCYTES # (AUTO) 1.4 10^3/uL (1.5-3.5); MEAN CORPUSCULAR HEMOGLOBIN 31.2 pg (27.0-31.0); MEAN CORPUSCULAR HGB CONC 33.2 g/dL (32.0-36.0); MEAN CORPUSCULAR VOLUME 93.9 fL (81.0-99.0); MEAN PLATELET VOLUME 11.4 fL (7.9-10.8); MONOCYTES # (AUTO) 0.8 10^3/uL (0.0-1.0); NEUTROPHILS # (AUTO) 7.4 10^3/uL (1.5-6.6); NEUTROPHILS % (AUTO) 75.1 %; PLT - PLATELET COUNT 191 10^3/uL (130-450); RED BLOOD COUNT 3.94 10^6/uL (4.20-5.40); RED CELL DISTRIBUTION WIDTH 13.9 % (12.0-15.0); WHITE BLOOD COUNT 9.9 x10^3/uL (4.8-10.8)
[2022-09-13 15:16] LABS: CREATININE,URINE 35.6 mg/dL; PROTEIN/CREATININE RATIO,URINE 0.1 (<=0.2)
[2022-09-13 16:13] LABS: ALBUMIN 3.5 g/dL (3.2-5.5); ALBUMIN/GLOBULIN RATIO 1.3 (1.0-2.2); BILIRUBIN,TOTAL 0.4 mg/dL (0.2-1.0); CALCIUM 9.5 mg/dL (8.5-10.3); CREATININE 0.6 mg/dL (0.6-1.3); POTASSIUM 4.1 mmol/L (3.5-4.5); TOTAL PROTEIN 6.2 g/dL (6.4-8.9)
== END 2022-09-13 10:31 | disposition home or self-care (01) ==
LOC: LAB.S 10:30
PROVIDERS: ATTEND Nurse Practitioner Obstetrics & Gynecology
DX: R03.0 Elevated blood-pressure reading, without diagnosis of hypertension (principal)
CPT/HCPCS: 36415; 80053; 82570; 84156; 85025

== ENCOUNTER 2022-10-05 13:21 | Inpatient (IN) | payer OTHER ==
[2022-10-05] MEDS ORDERED: miSOPROStoL 200 MCG TABLET PR PRN (13:56)
[2022-10-05] MEDS ORDERED: fentaNYL 100 MCG/2 ML VIAL IVP PRN (13:56)
[2022-10-05] MEDS ORDERED: LABETALOL 20 MG/4 ML SYRINGE IVP PRN ×3 (13:56)
[2022-10-05] MEDS ORDERED: METHYLERGONOVINE 0.2 MG/ML VIAL IM PRN (13:56)
[2022-10-05] MEDS ORDERED: hydrALAZINE INJ 20 MG/ML VIAL IVP PRN ×2 (13:56)
[2022-10-05] MEDS ORDERED: OXYTOCIN/SODIUM CHLORIDE 500 ML IV PRN (13:56)
[2022-10-05] MEDS ORDERED: SODIUM CHLORIDE FLUSH 0.9% 10 ML SYRINGE IVP PRN (13:56)
[2022-10-05] MEDS ORDERED: lidocaine 1% 20 ML MDV ID PRN (13:56)
[2022-10-05] MEDS ORDERED: LACTATED RINGERS 1,000 ML IV PRN (13:56)
[2022-10-05] MEDS ORDERED: NIFEdipine 10 MG CAPSULE PO PRN (13:56)
[2022-10-05] MEDS ORDERED: OXYTOCIN 10 UNIT/ML VIAL IM PRN (13:56)
[2022-10-05] MEDS ORDERED: TERBUTALINE 1 MG/ML VIAL SUBQ PRN (13:56)
[2022-10-05] MEDS ORDERED: miSOPROStoL 200 MCG TABLET BC PRN (13:56)
[2022-10-05] MEDS ORDERED: CARBOPROST TROMETHAMINE 250 MCG/ML AMP IM PRN (13:56)
[2022-10-05] MEDS ORDERED: TRANEXAMIC ACID IN NACL 1,000 MG/100 ML BAG IV PRN (13:56)
[2022-10-05] MEDS ORDERED: OXYTOCIN/SODIUM CHLORIDE 500 ML IV ONE (14:02)
--- OUTSIDE RECORDS SUMMARY | 2022-10-05 14:20 | EXTERNAL MEDICAL SUMMARY RPT | Continuity of Care Document ---
Author Name Unknown Address [address] [place] [address] Phone Organization [place] Address [address] [place] [address] Phone Care Team Providers Care Press Tool Maker Name Role Phone Unavailable Unavailable Unavailable Results/Labs test date facility value unit notes
[2022-10-05] MEDS ORDERED: WITCH HAZEL/GLYCERIN 1 PAD TOP PRN (15:36)
[2022-10-05] MEDS ORDERED: HYDROCORTISONE 1% CREAM 28 GM TUBE PR PRN (15:36)
--- NOTE | 2022-10-05 15:41 | HISTORY & PHYSICAL EXAMINATION ---
Admit History - Visit Reason Visit Reason: Contractions - : 2 Parity: 1 Premature: 0 Ectopic: 0 : 0 Care: positive: [facility] Risk/History: positive: None Complications This : positive: None Smoking Status: Never smoker - Mother's Labs Mother's Blood Type: positive: O Mother's RH: positive: Positive GBS: positive: Group B Step Negative Rubella Status: positive: Immune - HPI Diagnosis/Indication for NST: Other Current EDU 10/07/22 Gestation 39 Weeks and 5 Days 2 Vital Signs Temperature 36.7 C 10/05/22 13:34 Heart Rate 110 H 10/05/22 13:34 Respiratory Rate 16 10/05/22 13:34 Blood Pressure 129/98 H 10/05/22 13:34 Temperature 36.8 C 10/05/22 14:01 Heart Rate 91 10/05/22 14:01 Respiratory Rate 18 10/05/22 14:01 Blood Pressure 139/88 H 10/05/22 14:01 O2 Saturation If not protocol: Oxygen Flow, liters/minute - NST Procedure NST Procedure Start Time 11:17 Stop Time 11:44 - Results and Plan Plan: NST reactive. FHR baseline 150s, moderate variability, + accels, no decels Contractions palpate strong every 2-3 minutes with soft resting tone Meds/Allgy - Allergies Allergies/Adverse Reactions: Allergies Allergy/AdvReac Type Severity Reaction Status Date / Time amoxicillin Allergy Anaphylaxis Verified 08/11/20 05:43 Review of Systems - Constitutional Constitutional: denies: Fatigue, Fever, Chills, Malaise - Eyes Eyes: denies: Blurred vision, Spots in vision, Dipolpia - Cardiovascular Cariovascular: denies: Irregular heart rate, Palpitations, Chest pain, Edema - Integumentary Integumentary: denies: Rash, Pruritis - Neurological Neurological: denies: Headache - Psychiatric Psychiatric: denies: Depression, Anxiety - Hematologic/Lymphatic Hematologic/Lymphatic: denies: Anemia Physical - Abdominal Exam Vital Signs: Temp Pulse Resp BP Pulse Ox O2 Flow Rate 36.8 C 91 18 139/88 H 10/05/22 14:01 10/05/22 14:01 10/05/22 14:01 10/05/22 14:01 Contraction Frequency (min/apart): 2-3 Contraction Intensity: positive: Strong Uterine Resting Tone: positive: Soft - Monitoring Heart Rate Baseline: 150 Strip Review: positive: Category I - Presentation Presentation: positive: Vertex - Vaginal Exam Membranes: positive: Membranes intact Dilation (in cm): 8 Effacement (%): 100 Station: positive: 0 Cervical Position: positive: Midposition - Speculum Exam Speculum Exam Performed: positive: No Plan for Labor - Plan For Labor I expect patient to be DC'd or transferred within 96 hours.: Yes Plan for Labor: HPI: Di is a 37yo @ 39.5wks gestation by LMP c/w 10.5wk U/S who presents to [facility] with c/o contractions. Upon arrival her cervix is noted to be 8/100/0 and vertex with intact membranes. She is found to contract every 2-3 minutes with soft resting tone. FHR baseline 150s, moderate variability, + accels, no decels. She reports light pink vaginal discharge after starting mild, infrequent contractions this morning at approximately 0730. They increased in frequency and intensity since that time. She denies leakage of fluid and she reports +FM. She has been a patient of [facility] for the duration of her . She is advanced maternal age and her genetic screening was negative. She was noted to have moderate anemia at 28wks gestation and received an IV oral iron infusion x 1 and has been taking a daily oral iron supplement since that time. She has a history of gestational hypertension in with her first baby and has been taking a once daily 81mg ASA for prevention since 12wks gestation. She was noted to have elevated blood pressure at 36wks and her PIH labs at that time were WNL. Since then her blood pressure has remained WNL both in the office and with her at home blood pressures. Her has otherwise remained uncomplicated. She will be admitted to [facility] for expectant management. She is supported by her Cheo today. LMP: Initial U/S @ 10.5wks c/w LMP dating Serial exams - agree clinical support tech History: Term NSVB x 1. SAB x 0. Last pap 11/2021 WNL. Denies history of gonorrhea, chlamydia, genital herpes, oral herpes or any other STI. Sexual partner does NOT have HSV (oral or genital). Medical Hx: no significant Surgical Hx: none Social Hx: Monogamous with male partner Cheo. Stopped drinking alcohol due to . Denies current use of tobacco, marijuana or other recreational drugs. Reports that she is safe in current relationship. Family Hx: Denies family history of congenital anomalies, Cystic Fibrosis or chromosomal abnormalities. FOB has a family history of twins. Allergies: Amoxicillin Medications: PNV, 81mg ASA once daily, FeSO4 bid course: O positive, antibody negative Rubella immune; varicella immune HIV non-reactive; RPR non-reactive Hep B neg, Hep C neg Initial U/S @ 10.5wks gestation c/w LMP dating Genetic screening - negative FAS WNL with the exception of incomplete visualization of cardiac outflow tracts. Posterior placenta, no previa. Size c/w dating (EFW 76%tile). 3VC. Completion FAS WNL. Glucola 95 COVID-19 vaccine - x 2 with booster x 1 Tdap - administered in the 3rd trimester GBS negative Physical exam: Normocephalic, atraumatic Heart RRR w/o M/G/R Lungs CTAB Abdomen gravid, soft, nontender EFW 3700g FHR baseline 150s, moderate variability, + accels, no decels Contractions palpate strong every 2-3 minutes with soft resting tone SVE 8/100/0 and vertex with intact membranes Bilateral LE's trace edema. Mood is good. Assessment: 37yo @ 39.5wks gestation by LMP c/w 10.5wk U/S Active labor FHR Category I GBS negative Advanced maternal age Plan: Admit to [facility] for expectant management. Continuous monitoring. Nitrous oxide PRN. Jacuzzi PRN. Epidural per maternal request. Anticipate .
--- NOTE | 2022-10-05 16:01 | DELIVERY NOTE ---
Delivery Note - Labor Labor: positive: Spontaneous - Delivery Method Delivery Method: positive: Spontaneous vaginal delivery - Presentation Presentation: positive: Vertex, SHERLY - right occiput anterior - Nuchal Cord Nuchal Cord: positive: None - Amniotic Fluid Description Amniotic Fluid Description: positive: Clear - Episiotomy Type Episiotomy Type: positive: None - Laceration Laceration: positive: 1st degree, Perineal - Suture Suture Type: positive: Vicryl Suture Size: positive: 2-0 - Delivery Outcome Delivery Outcome: positive: Livebirth - [place]: positive: Placed in direct skin contact with mother, Bulb syringe, Stimulated, Warmed, [place] used, Warmer used sex: positive: Female - Cord Cord: positive: 3 vessels - Placenta Placenta: positive: Intact, Spontaneous - Estimated Blood Loss Estimated Blood Loss (in cc): 250 - Post Delivery Events Post Delivery Events: positive: No post delivery events - Delivery Comments (Free Text/Narrative) Delivery Comments (Free Text/Narrative): Labor: This 37yo @ 39.5wks gestation by LMP c/w 10.5wk U/S presented on 10/05/2022 in active labor. Cervix was 8/100/0 and vertex with intact membranes. FHR pattern demonstrated Category I pattern throughout labor. Normal labor course. SROM occurred at 1432 and was noted to be a moderate amount of clear fluid. Pt progressed to c/c/+1 with onset of active pushing at 1437. : Normal SVB of viable female on 10/05/2022 @ 1443. No nuchal cord. The was placed on maternal abdomen, stimulated, dried, and placed skin to skin. Apgars were 8 and 9 at 1 and 5 minutes respectively. moved to infant warmer for closer assessment secondary to poor color at 1 minute of life. (see pediatric note for detailed report). Pitocin administered via IV for hemostasis. The umbilical cord was allowed to stop pulsating at which time it was doubly clamped by CNM and cut by FOB. Cord blood was obtained. 3VC. Fundal massage and gentle cord traction applied for active management of the third stage. Placenta delivered spontaneously and intact at 1446. EBL 250mL. Fourth stage: Uterine fundus firm and there is no excessive bleeding. The perineum, vagina, and cervix were inspected and found to have a 1st degree perineal laceration which was repaired using a 2-[address]-1 needle in standard fashion and under sterile conditions. Vaginal examination following repair was performed. Tissues well approximated. Family bonding well. Both mother and baby were left in stable condition.
[2022-10-05] MEDS: ACETAMINOPHEN 500 MG TABLET PO SCH (17:20)
[2022-10-05] MEDS: IBUPROFEN 800 MG TABLET PO SCH ×2 (17:20→23:18)
[2022-10-05 19:15] VITALS: O2SAT 100
[2022-10-05] MEDS: DOCUSATE SODIUM 100 MG CAPSULE PO SCH (21:41)
[2022-10-06] MEDS: ACETAMINOPHEN 500 MG TABLET PO SCH ×3 (01:17→16:44)
[2022-10-06] MEDS: IBUPROFEN 800 MG TABLET PO SCH ×2 (05:28→12:41)
--- NOTE | 2022-10-06 08:33 | Discharge Plan ---
Discharge Plan Problem Reviewed?: Yes Disposition: Home, Self Care Condition: Good Diet: Regular Activity Restrictions: No Restrictions Shower Restrictions: No Driving Restrictions: No Weight Bearing: Full Weight Instruction Topics: Vaginal After No Smoking: If you smoke, Please STOP! Call for help. Follow-up with: Juana Esposito CNM, ARNP [Provider Admit Priv/Credential] - 1 Week
--- NOTE | 2022-10-06 08:38 | DISCHARGE SUMMARY ---
Discharge Summary Condition at Discharge: Good Discharge Disposition: 01 Home, Self Care - HOSPITAL COURSE Hospital Course: Date of Admission: 10/05/2022 Date of Discharge: 10/06/2022 Diagnosis on Admission: 1. 37yo @ 39.5wks gestation by LMP c/w 10.5wk U/S 2. Active labor 3. FHR Category I 4. GBS negative 5. Advanced maternal age Diagnosis on Discharge: 1. 37yo PPD#1 s/p TSVB viable female infant 2. 3. Normal recovery Brief History: She is a patient of [facility] who presented on 10/05/2022 in active labor. Cervix was 8/100/0 and vertex with intact membranes. She spontaneously progressed to deliver a viable female infant on 10/05/2022 @ 1443. 1st degree perineal laceration was repaired using a 2-[address]-1 needle in standard fashion and under sterile conditions. Apgars were 8/9 at 1 and 5 minutes respectively. EBL 250mL. She has been doing well in her course. She is ambulating and tolerating a regular diet. She is urinating without difficulty and her lochia is normal. Her pain is well controlled with oral medications. She is bonding well with her baby and without difficulty. She will be discharged home today on day #1 with instructions to continue taking her vi tamin while and to continue taking ibuprofen and tylenol over the counter as needed for pain management. She intends to follow up with myself at [facility] in 1 week for routine visit or sooner if needed. She has been given precautions to call if she has any worsening fevers, chills, abdominal pain, increased vaginal bleeding or foul smelling vaginal lochia. Physical exam: Normocephalic, atraumatic. Heart RRR w/o M/G/R, lungs CTAB, abdomen soft and nontender with fundus firm at U. Perineum intact, light lochia rubra, bilateral LE's no edema. Mood is good. - ALLERGIES Allergies/Adverse Reactions: Allergies Allergy/AdvReac Type Severity Reaction Status Date / Time amoxicillin Allergy Anaphylaxis Verified 08/11/20 05:43
[2022-10-06] MEDS: DOCUSATE SODIUM 100 MG CAPSULE PO SCH (08:50)
[2022-10-06 12:48] VITALS: BP 124/76
--- NOTE | 2022-10-06 17:50 | Labor Flowsheet ---
Labor Flowsheet Datetime Report Generated by CPN: 10/06/2022 17:49 Datetime: 10/06/2022 12:44 VITAL SIGNS NBP Sys/Mercy/Mean (mmHg): 124 : 76 : 86 Pulse: 81 LaborFlag: Labor Datetime: 10/05/2022 18:18 Membranes Ruptured Date/Time: 10/05/2022 14:32 Datetime: 10/05/2022 15:20 SpO2 (%): 100 Datetime: 10/05/2022 14:37 STAGE 2 Pushing Position: Pushing with Contractions Datetime: 10/05/2022 14:32 VAGINAL EXAM Membrane Status: Ruptured Membranes Rupture Method: Spontaneous Amniotic Fluid Color: Clear Amniotic Fluid Amount: Small Amniotic Fluid Odor: Normal Datetime: 10/05/2022 14:17 PATIENT CARE Patient Care Comments: breathing through contractions, provider bedside Datetime: 10/05/2022 13:52 COMMUNICATION Communication: Provider at Bedside Datetime: 10/05/2022 13:30 Stage of : Labor
== END 2022-10-06 17:00 | disposition home or self-care (01) | DRG 807 ==
LOC: WFO 13:21 → FBP 13:23 → WFO 13:56
PROVIDERS: ADMIT Nurse Practitioner Obstetrics & Gynecology; ATTEND Nurse Practitioner Obstetrics & Gynecology
PROC: 0HQ9XZZ Repair Perineum Skin, External Approach (ICD-10-PCS; principal; 2022-10-05)
PROC: 10E0XZZ Delivery of Products of Conception, External Approach (ICD-10-PCS; 2022-10-05)
DX: O70.0 First degree perineal laceration during delivery (principal); Z37.0 Single live birth; Z3A.39 39 weeks gestation of pregnancy; Z87.59 Personal history of other complications of pregnancy, childbirth and the puerperium
CPT/HCPCS: 99215; A9270; 80053; 84443; 85025; 86850; 86900; 86901